=== PATIENT | male | born 1955 ===

== ENCOUNTER 2017-10-01 08:47 | Emergency (ER) | payer BC ==
[2017-10-01 09:18] VITALS: BP 148/88
--- NOTE | 2017-10-01 10:25 | UC ---
FLU HPI - HPI Summary HPI Summary: 2 days of worseing cough and body aches with fever, no flu vaccine this year, unsure about influenza exposure - History of Current Complaint Hx Obtained From: Patient Onset/Duration: Sudden Onset, Lasting Days - 2, Still Present Severity Currently: Moderate Severity Initially: Moderate Pain Intensity: 5 Pain Scale Used: 0-10 Numeric Associated Signs & Symptoms: Positive: Fever, Myalgia, Cough, Nasal Congestion, Headache, Vomiting <Nathalia Morrison - Last Filed: 10/01/17 11:15> <Marsha Osman - Last Filed: 10/01/17 14:16> - History of Current Complaint Chief Complaint: UCRespiratory Stated Complaint: FLU LIKE SYMPS Time Seen by Provider: 10/01/17 10:25 - Allergy/Home Medications Allergies/Adverse Reactions: Allergies Allergy/AdvReac Type Severity Reaction Status Date / Time No Known Allergies Allergy Verified 10/15/12 09:57 Home Medications: Home Medications Losartan/Hydrochlorothiazide [Losartan-Hctz 50-12.5 mg Tab] 50 mg PO DAILY 10/01 [History Confirmed 10/01/17] PMH/Surg Hx/FS Hx/Imm Hx Previously Healthy: No Cardiovascular History: Hypertension GI/ History: Gastroesophageal Reflux Other History Of: Negative For: Anticoagulant Therapy - Surgical History Surgical History: Yes Surgery Procedure, Year, and Place: LEFT KNEE [id number], cataract - Family History Known Family History: Positive: None - Social History Occupation: Employed Full-time Lives: With Family Alcohol Use: Occasionally Substance Use Type: None Smoking Status (MU): Former Smoker <Nathalia Morrison - Last Filed: 10/01/17 11:15> Review of Systems Constitutional: Fever, Chills, Fatigue Skin: Negative Eyes: Negative ENT: Negative Respiratory: Cough Cardiovascular: Negative Gastrointestinal: Nausea Genitourinary: Negative Motor: Negative Neurovascular: Negative Musculoskeletal: Arthralgia, Myalgia Neurological: Headache Psychological: Negative Is Patient Immunocompromised?: No All Other Systems Reviewed And Are Negative: Yes <Nathalia Morrison - Last Filed: 10/01/17 11:15> Physical Exam Triage Information Reviewed: Yes Appearance: No Pain Distress, Well-Nourished, Ill-Appearing Vital Signs: Initial Vital Signs Temp 99.7 F 10/01/17 09:15 Pulse 99 10/01/17 09:15 Resp 18 10/01/17 09:15 BP 148/88 10/01/17 09:15 Pulse Ox 95 10/01/17 09:15 Vital Signs Reviewed: Yes Eye Exam: Normal Eyes: Positive: Conjunctiva Clear ENT Exam: Normal ENT: Positive: Normal ENT inspection, Hearing grossly normal, Pharynx normal, TMs normal, Uvula midline. Negative: Nasal congestion, Nasal drainage, Tonsillar swelling, Tonsillar exudate, Trismus, Muffled voice, Hoarse voice, Dental tenderness, Sinus tenderness Dental Exam: Normal Neck exam: Normal Neck: Positive: Supple, Nontender, No Lymphadenopathy Respiratory Exam: Normal Respiratory: Positive: Chest non-tender, Lungs clear, Normal breath sounds, No respiratory distress, No accessory muscle use Cardiovascular Exam: Normal Cardiovascular: Positive: RRR, No Murmur, Pulses Normal, Brisk Capillary Refill Abdominal Exam: Normal Abdomen Description: Positive: Nontender, No Organomegaly, Soft Musculoskeletal Exam: Normal Musculoskeletal: Positive: Strength Intact, ROM Intact, No Edema Neurological Exam: Normal Neurological: Positive: Alert, Muscle Tone Normal Psychological Exam: Normal Skin Exam: Normal <Nathalia Morrison - Last Filed: 10/01/17 11:15> Vital Signs: Initial Vital Signs Temp 99.7 F 10/01/17 09:15 Pulse 99 10/01/17 09:15 Resp 18 10/01/17 09:15 BP 148/88 10/01/17 09:15 Pulse Ox 95 10/01/17 09:15 <Marsha Osman - Last Filed: 10/01/17 14:16> Diagnostics - Laboratory Diagnostic Studies Completed/Ordered: influenza A (+) <Nathalia Morrison - Last Filed: 10/01/17 11:15> Flu Course/Dx - Course Course Of Treatment: tamiflu, albuterol, otc medications for symptoms relief, increase fluids, rest follow with pcp - Differential Dx/Diagnosis Provider Diagnoses: Hypertension in poor control, influenza A <Nathalia Morrison - Last Filed: 10/01/17 11:15> Discharge <Nathalia Morriosn - Last Filed: 10/01/17 11:15> <Marsha Osman - Last Filed: 10/01/17 14:16> - Discharge Plan Condition: Stable Disposition: HOME Prescriptions: Albuterol HFA INHALER* [Ventolin HFA Inhaler*] 2 puff INH Q4H PRN #1 mdi PRN Reason: cough Oseltamivir CAP* [Tamiflu CAP*] 75 mg PO BID #10 cap Patient Education Materials: Influenza (ED), Hypertension (ED) Forms: *Work Release Referrals: Brie Meadows MD [Primary Care Provider] - 1 Week Attestation Statement User Type: Provider - I was available for consult. This patient was seen by the CON[facility]. The patient was not presented to, seen by, or examined by me. Magdi <Marsha Osman - Last Filed: 10/01/17 14:16>
[2017-10-01] MEDS ORDERED: Acetaminophen TAB* 325 MG PO ONE (10:35)
== END 2017-10-01 10:55 | disposition home or self-care (01) ==
LOC: UCEAST 08:47
DX: J10.1 Influenza due to other identified influenza virus with other respiratory manifestations (principal); I10 Essential (primary) hypertension; K21.9 Gastro-esophageal reflux disease without esophagitis; Z87.891 Personal history of nicotine dependence
CPT/HCPCS: 87502; 99202; A9270-GY; G0463